=== PATIENT | female | born 1930 | race Caucasian/White ===

== ENCOUNTER 2019-04-06 10:46 | Outpatient (CLI) | payer OTHER ==
[~2019-04-06] VITALS: Ht 152.4 cm; Wt 58.1 kg
== END 2019-04-06 11:00 | disposition home or self-care (01) ==
LOC: OFIC 805 10:46
DX: H61.23 Impacted cerumen, bilateral (principal); H90.3 Sensorineural hearing loss, bilateral; H60.21 Malignant otitis externa, right ear

== ENCOUNTER 2019-04-12 07:47 | Outpatient (CLI) | payer OTHER | END 2019-04-12 07:54 | disposition home or self-care (01) | LOC: TOM 07:47 | DX: H60.21 Malignant otitis externa, right ear (principal); H90.3 Sensorineural hearing loss, bilateral ==

== ENCOUNTER 2019-05-04 09:05 | Outpatient (CLI) | payer OTHER ==
[~2019-05-04] VITALS: Ht 152.4 cm; Wt 58.1 kg
== END 2019-05-04 09:20 | disposition home or self-care (01) ==
LOC: OFIC 805 09:05
DX: H90.3 Sensorineural hearing loss, bilateral (principal)

== ENCOUNTER 2019-10-12 05:40 | Day surgery (SDC) | payer OTHER ==
[~2019-10-12 05:40] MED LIST: GABAPENTIN800 MG PO; PLAVIX75 MG PO; SIMVASTATIN5 MG PO; [UNRECOGNIZED DRUG - OTHER]
== END 2019-10-12 10:45 | disposition home or self-care (01) ==
LOC: CIR.AMB 05:40
DX: M43.16 Spondylolisthesis, lumbar region (principal); M48.061 Spinal stenosis, lumbar region without neurogenic claudication